=== PATIENT | male | born 1990 | race Caucasian/White ===

== ENCOUNTER 2017-08-02 22:07 | Emergency (ER) | payer SELFPAY ==
[2017-08-02 22:15] VITALS: BP 143/82; BMI 21.3
--- NOTE | 2017-08-02 23:16 | DR.GENAD ---
HPI - PCP Primary Care Physician: HADLEY - HPI Comment HPI Comment: PAIN WORSE PAST SEVERAL DAYS. NO FEVER OR DYSURIA. - Complaint/Symptoms Chief Complaint Doctors Comments: RIGHT SIDED ABDOMINAL PAIN WITH NAUSEA AND VOMITING THAT IS INTERMITTENT SINCE APPENDECTOMY 2 YEARS AGO. Chief Complaint:: RIGHT SIDE PAIN; VOMITING/NAUSEA; PT STATES OFF AND ON PAIN AND NAUSEA SINCE APPENDIX WAS REMOVED X 2 YEARS AGO. Self Treatment fo Chief Complaint: NO TREATMENT - Nurses notes reviewed Nurses Notes Review: Yes - Source History Provided: Patient - Mode of Arrival Mode of Arrival: Ambulatory - Timing Onset of Chief Complaint: 08/01/17 Came on: Suddenly - Duration Duration: Constant Duration: Days - Severity Severity: Moderate PMH - PMH Past Medical History: No Past Medical History: Migraines Past Surgical History: Yes Surgical History: Appendectomy - Family History History of Family Medical Conditions: No Family Medical History: Diabetes Mellitus, Cancer - Social History Does patient currently use any type of tobacco product: No Have you used tobacco products in the last 12 months: No Type of Tobacco Use: None Do you use any recreational Drugs:: No Lives With: Alone Lives Where: Home - infectious screening In the last 2 months have you had wt loss of >10#?: NO Have you had fever, night sweats or hemotysis?: No Have you traveled outside the country in the last 6 months?: No Isolation: Standard ROS - Review of Systems Constitutional: No Symptoms Reported Eyes: No Symptoms Reported ENTM: No Symptoms Reported Respiratoy: No Symptoms Reported Cardiovascular: No Symptoms Reported Gastrointestinal/Abdominal: Abdominal Pain, Nausea, Vomiting Genitourinary: No Symptoms Reported Neurological: No Symptoms Reported Musculoskeletal: No Symptoms Reported Integumentary: No Symptoms Reported Hematologic/Lymphatic: No Symptoms Reported Endocrine: No Symptoms Reported All Other Systems: Reviewed and Negative PE - Vital Signs Vitals: Temperature 98.5 F Pulse Rate 57 Respiratory Rate 22 Blood Pressure [Left Arm] 119/75 Blood Pressure 143/82 O2 Sat by Pulse Oximetry 100 - General Limitations: No Limitations General Appearance: Alert - Head Head Exam: Normal Inspection - Eyes Eye exam: Normal Appearance - ENT ENT Exam: Normal External Ear Exam External Ear Exam: Normal External Inspection TM/Canal Exam: Bilateral Normal Nose Exam: Normal Nose Exam Mouth Exam: Normal Inspection Throat Exam: Normal Inspection - Neck Neck Exam: Trachea Midline - Chest Chest Inspection: Symmetric Chest Wall Rise - Respiratory Respiratory Exam: Normal Lung Sounds Bilat Respiratory Exam: Bilateral Clear to Auscultation - Cardiovascular Cardiovascular Exam: Regular Rate, Normal Rhythm, Normal Heart Sounds - Abdominal Exam Abdominal Exam: Normal Bowel Sounds, Soft, Tenderness Abdominal Tenderness: RUQ, RLQ - Extremities Extremities Exam: Normal Inspection - Back Back Exam: Normal Inspection - Neurologic Neurological Exam: Alert, Oriented X3 - Psychiatric Psychiatric Exam: Normal Affect, Normal Mood - Skin Skin Exam: Normal Color MDM - Differential Diagnosis Differential Diagnosis: ABDOMINAL PAIN, NAUSEA AND VOMITING Course - Treatment Treatment: SEE ORDERS. - Education/Counseling Education/Counseling: Patient, Education Educated On: Treatment, Diagnosis, Needs for Follow Up ROR - Labs Reviewed Laboratory Results Reviewed?: Yes Result Diagrams: 08/02/17 23:20 08/02/17 23:20 Laboratory: WBC 9.0 X10^3/uL (3.6-10.0) 08/02/17 23:20 RBC 5.20 X10^6/uL (4.7-6.0) 08/02/17 23:20 Hgb 15.7 g/dL (13.5-18.0) 08/02/17 23:20 Hct 45.8 % (42.0-54.0) 08/02/17 23:20 MCV 88.0 fL (80.0-100.0) 08/02/17 23:20 MCH 30.1 pg (27.0-34.0) 08/02/17 23:20 MCHC 34.2 g/dL (33.0-35.0) 08/02/17 23:20 RDW 13.1 % (11.6-16.5) 08/02/17 23:20 Plt Count 237 X10^3/uL (150.0-450.0) 08/02/17 23:20 MPV 7.6 fL (7.4-11.0) 08/02/17 23:20 Neut % 50.9 % (42.0-75.0) 08/02/17 23:20 Lymph % 37.8 % (21.0-51.0) 08/02/17 23:20 Boyd % 7.2 % (0.0-13.0) 08/02/17 23:20 Eos % 3.6 % (0.9-2.9) H 08/02/17 23:20 Baso % 0.5 % (0.2-1.0) 08/02/17 23:20 Neut # 4.6 x10^3/uL (2.2-4.8) 08/02/17 23:20 Lymph # 3.4 X10^3/uL (1.3-2.9) H 08/02/17 23:20 Boyd # 0.6 x10^3/uL (0.3-0.8) 08/02/17 23:20 Eos # 0.3 x10^3/uL (0.0-0.2) H 08/02/17 23:20 Baso # 0.0 X10^3/uL (0.0-0.1) 08/02/17 23:20 Absolute Nucleated RBC 0.1 /100WBC 08/02/17 23:20 Sodium 141 mmol/L (136-145) 08/02/17 23:20 Corrected Sodium TNP 08/02/17 23:20 Potassium 4.6 mmol/L (3.5-5.1) 08/02/17 23:20 Chloride 103 mmol/L (98-107) 08/02/17 23:20 Carbon Dioxide 31.1 mmol/L (21-32) 08/02/17 23:20 BUN 10 mg/dL (7-18) 08/02/17 23:20 Creatinine 1.36 mg/dL (0.70-1.30) H 08/02/17 23:20 Est GFR (MDRD) Af Amer > 60 (>60) 08/02/17 23:20 Est GFR (MDRD) Non-Af > 60 (>60) 08/02/17 23:20 Glucose 93 mg/dL (65-99) 08/02/17 23:20 Calcium 9.5 mg/dL (8.5-10.1) 08/02/17 23:20 Corrected Calcium TNP 08/02/17 23:20 Total Bilirubin 0.30 mg/dL (0.2-1.0) 08/02/17 23:20 AST 17 Units/L (15-37) 08/02/17 23:20 ALT 21 Units/L (12-78) 08/02/17 23:20 Alkaline Phosphatase 61 Units/L (46-116) 08/02/17 23:20 Total Protein 7.7 g/dL (6.4-8.2) 08/02/17 23:20 Albumin 4.2 g/dL (3.4-5.0) 08/02/17 23:20 Globulin 3.5 g/dL (2.5-4.5) 08/02/17 23:20 Albumin/Globulin Ratio 1.2 Ratio (1.1-2.1) 08/02/17 23:20 Amylase 57 Units/L (25-115) 08/02/17 23:20 Lipase 267 Units/L (73-393) 08/02/17 23:20 Specimen Type Clean catch urine 08/02/17 23: Urine Color Pale yellow (YELLOW) 08/02/17 23: Urine Appearance Clear (CLEAR) 08/02/17 23: Urine pH 7.0 (5.0 - 8.0) 08/02/17 23: Ur Specific [place] 1.010 (1.000-1.030) 08/02/17 23: Urine Protein Negative (NEGATIVE) 08/02/17 23: Urine Glucose (UA) Negative (NEGATIVE) 08/02/17 23: Urine Ketones Negative (NEGATIVE) 08/02/17 23: Urine Occult Blood 1+ (NEGATIVE) 08/02/17 23: Urine Nitrite Negative (NEGATIVE) 08/02/17 23: Urine Bilirubin Negative (NEGATIVE) 08/02/17 23: Urine Urobilinogen Normal (NORMAL) 08/02/17 23: Ur Leukocyte Esterase Negative (NEGATIVE) 08/02/17 23: Urine RBC 0-3 /HPF (NEGATIVE) 08/02/17 23: Urine WBC 0-1 /HPF (NEGATIVE) 08/02/17 23:27 Ur Squamous Epith Cells Rare /HPF (NEGATIVE) 08/02/17 23: Urine Bacteria Trace /HPF (NEGATIVE) 08/02/17 23: Ur Culture Indicated? No/not indicated 08/02/17 23: - XRAY XRAY Interpreted by: Radiologist XRAY Findings: REPORT DISCUSS WITH PATIENT. - Diagnosis Discharge Problem: Abdominal pain Nausea & vomiting Qualifiers: Vomiting type: bilious vomiting Qualified Code(s): R11.14 - Bilious vomiting - Discharge Plan Condition: Stable Prescriptions: Ketorolac Tromethamine [Toradol Tab] 10 mg PO Q8H PRN #15 tab PRN Reason: Pain Ondansetron HCl [Zofran Tab 4 mg] 4 mg PO Q8H PRN #12 tab PRN Reason: Nausea/Vomiting Ranitidine HCl [ZANTAC TAB 150 MG *] 150 mg PO BID #60 tab - Follow ups/Referrals Follow ups/Referrals: KYLIE WARD [STAFF PHYSICIAN] - 2 days [facility],None [Primary Care Provider] - 2 days - Instructions Instructions: Nausea and Vomiting, Adult, [id number], Abdominal Pain, Adult, [id number] Additional Instructions: RETURN TO ED IF WORSE.
[2017-08-02 23:31] LABS: BASOPHILS % (AUTO) 0.5 % (0.2-1.0); EOSINOPHILS # (AUTO) 0.3 x10^3/uL (0.0-0.2); EOSINOPHILS % (AUTO) 3.6 % (0.9-2.9); HEMATOCRIT 45.8 % (42.0-54.0); HEMOGLOBIN 15.7 g/dL (13.5-18.0); LYMPHOCYTES # (AUTO) 3.4 X10^3/uL (1.3-2.9); LYMPHOCYTES % (AUTO) 37.8 % (21.0-51.0); MEAN CORPUSCULAR HEMOGLOBIN 30.1 pg (27.0-34.0); MEAN CORPUSCULAR HGB CONC 34.2 g/dL (33.0-35.0); MEAN PLATELET VOLUME 7.6 fL (7.4-11.0); MONOCYTES # (AUTO) 0.6 x10^3/uL (0.3-0.8); MONOCYTES % (AUTO) 7.2 % (0.0-13.0); NEUTROPHILS # (AUTO) 4.6 x10^3/uL (2.2-4.8); NEUTROPHILS % (AUTO) 50.9 % (42.0-75.0); PLATELET COUNT 237 X10^3/uL (150.0-450.0); RED CELL DISTRIBUTION WIDTH 13.1 % (11.6-16.5)
[2017-08-02 23:32] LABS: BILIRUBIN,URINE NEGATIVE (NEGATIVE); BLOOD/HEMOGLOBIN,URINE 1+ (NEGATIVE); GLUCOSE, URINE NEGATIVE (NEGATIVE); KETONES,URINE NEGATIVE (NEGATIVE); LEUKOCYTE ESTERASE ,URINE NEGATIVE (NEGATIVE); NITRITES,URINE NEGATIVE (NEGATIVE); PROTEIN,URINE NEGATIVE (NEGATIVE); UROBILINOGEN,URINE NORMAL (NORMAL)
[2017-08-02 23:38] LABS: APPEARANCE,URINE CLEAR (CLEAR); BACTERIA,URINE TRACE /HPF (NEGATIVE); COLOR,URINE PALE YELLOW (YELLOW); RBC,URINE 0-3 /HPF (NEGATIVE); SQUAMOUS EPITHELIAL CELL,UR RARE /HPF (NEGATIVE)
[2017-08-02 23:39] LABS: ALANINE AMINOTRANSFERASE 21 Units/L (12-78); ALBUMIN 4.2 g/dL (3.4-5.0); ALKALINE PHOSPHATASE 61 Units/L (46-116); AMYLASE 57 Units/L (25-115); ASPARTATE AMINO TRANSFERASE 17 Units/L (15-37); BLOOD UREA NITROGEN 10 mg/dL (7-18); CALCIUM 9.5 mg/dL (8.5-10.1); CARBON DIOXIDE 31.1 mmol/L (21-32); CHLORIDE 103 mmol/L (98-107); CREATININE 1.36 mg/dL (0.70-1.30); LIPASE 267 Units/L (73-393); SODIUM 141 mmol/L (136-145); TOTAL PROTEIN 7.7 g/dL (6.4-8.2); eGFR BLACK RACES > 60 (>60); eGFR NON BLACK RACES > 60 (>60)
--- NOTE | 2017-08-02 23:50 | CT ---
EXAM: CT ABDOMEN AND PELVIS WITHOUT CONTRAST INDICATION: Right-sided pain COMPARISION: No priors available for comparison TECHNIQUE: Axial CT examination of the abdomen and pelvis was performed without intravenous contrast. Coronal an d sagittal reconstructions were created using the axial data. FINDINGS: The lung bases are clear. The liver, spleen, pancreas, adrenal glands, and gallbladder are normal. Th ere are multiple nonobstructing bilateral renal calculi. No ureteral stone or hydronephrosis. There i s no evidence of biliary ductal dilatation. The aorta and inferior vena cava are normal in caliber. T he bowel loops are nonobstructed. No abnormal mass, lymphadenopathy, or fluid collection. Urinary bladder is normal. The appendix has been removed. The regional skeleton is intact. IMPRESSION: There are multiple nonobstructing bilateral renal calculi. No ureteral stone or hydronephrosis. Reported By:
[2017-08-03] MEDS ORDERED: TORADOL 60 MG VIAL IM ONE
[2017-08-03] MEDS ORDERED: ZOFRAN INJ 4 MG VIAL IM ONE
[2017-08-03] MEDS ORDERED: ZANTAC PO ONE ×2 (00:02→00:03)
[2017-08-03] MEDS ORDERED: TORADOL 60 MG VIAL ONE (00:03)
[2017-08-03] MEDS ORDERED: ZOFRAN INJ 4 MG VIAL ONE (00:03)
== END 2017-08-03 00:20 | disposition home or self-care (01) ==
LOC: ER 22:18
DX: R10.11 Right upper quadrant pain (principal); R11.14 Bilious vomiting
CPT/HCPCS: 36415; 74176; 80053; 81001; 82150; 83690; 85025; 99283; J1885; J2405